=== PATIENT | male | born 1970 | race African-American/Black ===

== ENCOUNTER 2018-11-09 08:26 | Emergency (ER) | payer OTHER ==
--- NOTE | 2018-11-09 08:31 | NUR ---
CALLED TO TRIAGE, STS THAT HE'S NOT READY TO COME IN
--- NOTE | 2018-11-09 08:58 | NUR ---
REFUSED SEROQUEL 200MG PO.
[2018-11-09] MEDS: QUETIAPINE FUMARATE 100 MG TABLET PO SCH (09:07)
== END 2018-11-09 09:08 | disposition home or self-care (01) ==
LOC: ER 08:28
DX: F25.9 Schizoaffective disorder, unspecified (principal); Z76.5 Malingerer [conscious simulation]
CPT/HCPCS: A4606; Z7610